=== PATIENT | male | born 1965 | race Caucasian/White ===

== ENCOUNTER 2017-03-29 05:58 | Day surgery (SDC) | payer OTHER ==
[2017-03-28 14:37] VITALS: BMI 28.7
[2017-03-29] MEDS ORDERED: Fentanyl 100 MCG/2 ML VIAL ONE (06:27)
[2017-03-29] MEDS ORDERED: Midazolam HCl 2 mg/2 ml Vial ONE (06:27)
[2017-03-29] MEDS ORDERED: Clindamycin/D5W 600 mg/50 ml Premix Bag ONE (06:40)
[2017-03-29 06:48] LABS: #Eosinphils 0.3 thou/uL (0.0-0.7); #Lymphocytes 1.4 thou/uL (1.20-3.40); #Monocytes 0.7 thou/uL (0.11-0.59); #Neutrophils 5.8 thou/uL (1.40-6.50); %Basophils 0.5 % (0.0-1.0); %Eosinophils 4.1 % (0.0-10.0); %Lymphocytes 16.6 % (21.0-51.0); %Monocytes 8.3 % (0.0-10.0); %Neutrophils 70.5 % (42.0-75.0); Hemoglobin 16.1 g/dL (14.0-18.0); Mean Corpuscular HGB CONC 34.9 g/dL (32.0-36.0); Mean Corpuscular Hemoglobin 31.3 pg (27.0-31.0); Mean Corpuscular Volume 89.8 fl (80.0-94.0); Mean Platelet Volume 8.1 fL (7.4-10.4); Platelet Count 197 thou/uL (130-400); RBC Distribution Width 11.7 % (11.5-14.5); Red Blood Cell (RBC) Count 5.14 mill/uL (4.70-6.10); White Blood Cell (WBC) Count 8.2 thou/uL (4.8-10.8)
[2017-03-29 07:03] LABS: Anion Gap 11 mmol/L (10-20); BUN (Urea Nitrogen) 19 mg/dL (8.4-25.7); Calc. Creatinine Clearance 140 mL/min (70-130); Calcium 9.3 mg/dL (7.8-10.44); Carbon Dioxide 24 mmol/L (22-29); Chloride 108 mmol/L (98-107); Estimated GFR-MDRD Greater than 90; Glucose 115 mg/dL (70-105); Potassium 4.2 mmol/L (3.5-5.1); Sodium 139 mmol/L (136-145)
[2017-03-29] MEDS ORDERED: Bupivacaine PF 0.5% 30 ML VIAL ONE (08:25)
--- NOTE | 2017-03-29 09:24 | OP ---
DATE OF PROCEDURE: 03/29/2017 PREOPERATIVE DIAGNOSIS: Left knee prepatellar bursa. POSTOPERATIVE DIAGNOSIS: Left knee ganglion which appeared to be emanating from the lateral aspect o f the knee joint and was displaced anteriorly on top of the patella. PROCEDURE: Left knee open removal of ganglion. We did send a specimen. ANESTHESIA: The patient had general anesthetic. IMPLANTS: There were no blocks. CONDITION: He did go to the recovery room in stable condition. SURGEON: Asaf Ling M.D. [employer] DRIVER: None. BLOOD LOSS: Minimal. COMPLICATIONS: None. INDICATIONS: Active 51-year-old male who had a large hard area on top of his patella which was felt to be prepatellar bursa. He has failed nonoperative treatment and wished to have this removed. DESCRIPTION OF PROCEDURE: After all appropriate consent forms were explained and signed, he was take n back to the operating room and at this time was given general anesthetic. Tourniquet was placed on the left thigh and leg was prepped and draped in the standard surgical fashion. The limb was then e xsanguinated and tourniquet was taken up to 300 mmHg. An incision was made directly over top of the mass down through skin only. A 15 blade was used to carefully dissect the mass and was found that it could be easily just peeled off of the retinaculum and the patella anteriorly and as we started to r emove this, again, there was no attachment distally, but has started to go proximally and appeared th at this emanated right between where the IT band and the lateral retinaculum intersected. This was t ransected here. Specimen was removed and sent to pathology for formal evaluation. We then thoroughl y irrigated and dried. We then placed some Vicryl sutures to imbricate this area so that the joint f luid could no longer be evacuated and once this was done, we then let our tourniquet down. Hemostasi s was achieved. We thoroughly irrigated and dried some more. We then placed some tacking sutures of 2-0 Vicryl to tack down our skin flap to the underlying soft tissue, so we did not develop any posto perative hematoma. We then used 2-0 Vicryl and multiple nylon interrupted sutures to close our skin incision. A bulky sterile dressing was applied and the tourniquet was let down. Toes pinked up nice ly. The patient was then placed in a knee immobilizer. He was taken to the recovery room in stable condition. All counts were correct at the end of the case and he did receive preoperative IV antibio tics.
[2017-03-29] MEDS ORDERED: PROPOFOL 200 MG/20 ML VIAL ONE (14:18)
[2017-03-29] MEDS ORDERED: Metoclopramide HCl 10 MG/2 ML VIAL ONE (14:18)
[2017-03-29] MEDS ORDERED: Lidocaine 1% PF 5 ML VIAL ONE (14:18)
[2017-03-29] MEDS ORDERED: Ondansetron HCl/PF 4 MG/2 ML Vial ONE (14:18)
[2017-03-29] MEDS ORDERED: Ketorolac Tromethamine 30 MG/ML VIAL ONE (14:18)
[2017-03-29] MEDS ORDERED: Dexamethasone 20 MG/5 ML VIAL ONE (14:18)
--- NOTE | 2017-03-31 09:23 | EKG ---
Test Reason : PREOP Blood Pressure : / mmHG Vent. Rate : 062 BPM Atrial Rate : 062 BPM P-R Int : 180 ms QRS Dur : 096 ms QT Int : 396 ms P-R-T Axes : 034 044 026 degrees QTc Int : 401 ms Normal sinus rhythm Normal ECG No previous ECGs available Confirmed by MATTHEW TREVINO ([id number]) on 03/31/2017 9:22:45 AM Referred By: HANNAH Confirmed By:MATTHEW TREVINO
== END 2017-03-29 11:15 | disposition home or self-care (01) ==
LOC: SDC 05:58
PROVIDERS: ATTEND Orthopaedic Surgery
PROC: 0MBP0ZZ Excision of Left Knee Bursa and Ligament, Open Approach (ICD-10-PCS; principal; 2017-03-29)
DX: M67.462 Ganglion, left knee (principal); I10 Essential (primary) hypertension; E78.5 Hyperlipidemia, unspecified; J30.2 Other seasonal allergic rhinitis; F17.290 Nicotine dependence, other tobacco product, uncomplicated; Z79.899 Other long term (current) drug therapy; Z88.0 Allergy status to penicillin; Z96.7 Presence of other bone and tendon implants; Z98.890 Other specified postprocedural states; Z85.820 Personal history of malignant melanoma of skin
CPT/HCPCS: 36415; 80048; 85025; 88304; 93005; 93010; G8978-GP-CL; G8979-GP-CL; G8980-GP-CL; J0131; J1100; J1885; J2001; J2250; J2405; J2704; J2765; J3010; J3490; S0020